=== PATIENT | female | born 1960 | race Caucasian/White ===

== ENCOUNTER 2016-09-24 16:41 | Emergency (ER) | payer OTHER ==
[~2016-09-24] VITALS: Ht 162.6 cm; Wt 60.8 kg
[2016-09-24] MEDS ORDERED: LIPITOR 20 MG T20 M1 PO (16:49)
[2016-09-24] MEDS ORDERED: PAXIL10 MG PO (16:49)
[2016-09-24] MEDS ORDERED: COZAAR 50 MG TA50 M2 PO (16:49)
[2016-09-24] MEDS ORDERED: PROPRANOLOL 1010 MG PO (16:49)
[2016-09-24 17:54] VITALS: BP 155/77
== END 2016-09-24 17:59 | disposition home or self-care (01) ==
LOC: ER 16:41
DX: S61.411A Laceration without foreign body of right hand, initial encounter (principal); Z88.1 Allergy status to other antibiotic agents; W25.XXXA Contact with sharp glass, initial encounter; Y93.89 Activity, other specified; Y92.89 Other specified places as the place of occurrence of the external cause; Y99.9 Unspecified external cause status